=== PATIENT | male | born 1990 | race Caucasian/White ===

== ENCOUNTER 2019-01-18 18:40 | Emergency (ER) | payer OTHER ==
[~2019-01-18] VITALS: Ht 185.4 cm; Wt 128.4 kg
[~2019-01-18 18:40] MED LIST: IBUPROFEN 800800 M1 PO; NAPROSYN500 MG PO; ROBAXIN 750 MG750 M1 PO
[2019-01-18 19:40] VITALS: BP 150/77
== END 2019-01-18 19:42 | disposition left against medical advice (07) ==
LOC: M.ERS 18:40
DX: Z53.21 Procedure and treatment not carried out due to patient leaving prior to being seen by health care provider (principal)

== ENCOUNTER 2019-04-17 19:38 | Emergency (ER) | payer OTHER ==
[~2019-04-17] VITALS: Ht 185.4 cm; Wt 122.5 kg
[2019-04-17] MEDS ORDERED: HYDROCODON-ACE1 EAC8 PO (20:57)
[2019-04-17 21:09] VITALS: BP 148/80
== END 2019-04-17 21:10 | disposition home or self-care (01) ==
LOC: M.ERS 19:38
DX: M77.51 Other enthesopathy of right foot and ankle (principal)

== ENCOUNTER 2019-05-17 19:09 | Emergency (ER) | payer OTHER ==
[~2019-05-17] VITALS: Ht 185.4 cm; Wt 122.5 kg
[~2019-05-17 19:09] MED LIST changes: +HYDROCODON-ACE1 EAC8 PO
[2019-05-17 19:13] VITALS: BP 189/101
[2019-05-17] MEDS ORDERED: NORCO 5-325 TA1 EAC1 PO (19:52)
== END 2019-05-17 20:00 | disposition home or self-care (01) ==
LOC: M.ERS 19:09
DX: M79.671 Pain in right foot (principal)

== ENCOUNTER 2019-07-15 19:36 | Emergency (ER) | payer OTHER ==
[~2019-07-15] VITALS: Ht 185.4 cm; Wt 122.5 kg
[~2019-07-15 19:36] MED LIST changes: +NORCO 5-325 TA1 EAC1 PO
[2019-07-15] MEDS ORDERED: MOBIC15 MG PO (20:57)
[2019-07-15 21:14] VITALS: BP 152/97
== END 2019-07-15 21:16 | disposition home or self-care (01) ==
LOC: M.ERS 19:36
DX: S93.491A Sprain of other ligament of right ankle, initial encounter (principal); W10.8XXA Fall (on) (from) other stairs and steps, initial encounter; Y93.89 Activity, other specified; Y92.89 Other specified places as the place of occurrence of the external cause; Y99.8 Other external cause status

== ENCOUNTER 2019-07-28 06:12 | Emergency (ER) | payer OTHER ==
[~2019-07-28] VITALS: Ht 185.4 cm; Wt 122.5 kg
[~2019-07-28 06:12] MED LIST changes: +MOBIC15 MG PO
[2019-07-28 07:10] LABS: INFLUENZA A ANTIGEN Negative (Negative); INFLUENZA B ANTIGEN Negative (Negative)
[2019-07-28 07:50] VITALS: BP 156/74
== END 2019-07-28 07:52 | disposition left against medical advice (07) ==
LOC: M.ERS 06:12
PROVIDERS: Personal Emergency Response Attendant
DX: Z53.21 Procedure and treatment not carried out due to patient leaving prior to being seen by health care provider (principal)

== ENCOUNTER 2019-09-30 23:12 | Emergency (ER) | payer OTHER ==
[~2019-09-30] VITALS: Ht 185.4 cm; Wt 122.5 kg
[2019-09-30 23:39] LABS: ABSOLUTE BASOPHILS 0.1 thou/uL (0.0-0.2); ABSOLUTE EOSINOPHILS 0.2 thou/uL (0.0-0.7); ABSOLUTE LYMPHOCYTES 4.1 thou/uL (0.8-5.3); ABSOLUTE MONOCYTES 0.8 thou/uL (0.0-1.2); ABSOLUTE NEUTROPHILS 7.4 thou/uL (1.6-8.1); BASOPHILS 0.9 %; EOSINOPHILS 1.9 %; HEMATOCRIT 43.3 % (42.0-52.0); HEMOGLOBIN 15.4 gm/dL (14.0-18.0); LYMPHOCYTES 32.4 %; MCHC 35.6 g/dL (28.0-37.0); MCV 86.8 fL (80.0-100.0); MPV 8.8 fl. (7.2-11.1); NUCLEATED RBCS 0 /100WBC; PLATELET COUNT* 249 thou/uL (150-400); POLYS 58.8 %; RBC 4.99 mil/uL (4.50-6.00); RDW-CV 12.9 % (10.5-14.5); WBC 12.5 thou/uL (4.0-11.0)
[2019-09-30 23:53] LABS: CREATININE 0.9 mg/dL (0.6-1.3); POTASSIUM 3.6 mmol/L (3.5-5.1)
[2019-09-30 23:57] LABS: ALBUMIN 3.7 g/dL (3.4-5.0); TOTAL BILIRUBIN 0.3 mg/dL (<0.1-1.0); TOTAL PROTEIN 7.1 g/dL (6.4-8.2)
[2019-10-01 00:59] VITALS: BP 131/87
--- NOTE | 2019-10-01 09:12 | EKG ---
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
== END 2019-10-01 00:59 | disposition home or self-care (01) ==
LOC: M.ERS 23:12
PROVIDERS: Emergency Medicine
DX: R07.89 Other chest pain (principal)

== ENCOUNTER 2019-10-07 17:37 | Emergency (ER) | payer OTHER ==
[~2019-10-07] VITALS: Ht 182.9 cm; Wt 111.1 kg
[2019-10-07] MEDS ORDERED: TYLENOL WITH CO1 TA1 PO (17:55)
[2019-10-07] MEDS ORDERED: AMOXICILLIN 50500 MG PO (17:55)
[2019-10-07 18:02] VITALS: BP 175/60
== END 2019-10-07 18:00 | disposition home or self-care (01) ==
LOC: M.ERS 17:37
DX: K04.7 Periapical abscess without sinus (principal)

== ENCOUNTER 2019-12-04 14:35 | Emergency (ER) | payer OTHER ==
[~2019-12-04] VITALS: Ht 185.4 cm; Wt 122.5 kg
[~2019-12-04 14:35] MED LIST changes: +AMOXICILLIN 50500 MG PO; +TYLENOL WITH CO1 TA1 PO
[2019-12-04 15:22] VITALS: BP 150/77
== END 2019-12-04 15:29 | disposition home or self-care (01) ==
LOC: M.ERS 14:35
DX: S53.491A Other sprain of right elbow, initial encounter (principal); W19.XXXA Unspecified fall, initial encounter; Y93.89 Activity, other specified; Y92.89 Other specified places as the place of occurrence of the external cause; Y99.8 Other external cause status

== ENCOUNTER 2019-12-31 20:00 | Emergency (ER) | payer OTHER ==
[~2019-12-31] VITALS: Ht 185.4 cm; Wt 122.5 kg
[2019-12-31] MEDS ORDERED: TYLENOL WITH CO1 TA1 PO (20:41)
[2019-12-31] MEDS ORDERED: TRAMADOL 50 MG50 MG PO (20:46)
[2019-12-31 21:14] VITALS: BP 162/66
== END 2019-12-31 21:15 | disposition home or self-care (01) ==
LOC: M.ERS 20:00
DX: S93.691A Other sprain of right foot, initial encounter (principal); F17.210 Nicotine dependence, cigarettes, uncomplicated; X50.1XXA Overexertion from prolonged static or awkward postures, initial encounter; Y93.89 Activity, other specified; Y92.89 Other specified places as the place of occurrence of the external cause; Y99.8 Other external cause status

== ENCOUNTER 2020-02-11 18:06 | Emergency (ER) | payer OTHER ==
[~2020-02-11] VITALS: Ht 185.4 cm; Wt 120.2 kg
[~2020-02-11 18:06] MED LIST changes: +TRAMADOL 50 MG50 MG PO
[2020-02-11 18:11] VITALS: BP 143/85
[2020-02-11] MEDS ORDERED: AMOXICILLIN 50500 MG PO (18:49)
[2020-02-11] MEDS ORDERED: NORCO 5-325 TA1 EAC2 PO (18:49)
== END 2020-02-11 20:54 | disposition home or self-care (01) ==
LOC: M.ERS 18:06
DX: K01.1 Impacted teeth (principal); K08.89 Other specified disorders of teeth and supporting structures; R60.9 Edema, unspecified

== ENCOUNTER 2020-07-07 21:28 | Emergency (ER) | payer OTHER ==
[~2020-07-07] VITALS: Ht 185.4 cm; Wt 122.5 kg
[~2020-07-07 21:28] MED LIST changes: +NORCO 5-325 TA1 EAC2 PO
[2020-07-07] MEDS ORDERED: PREDNISONE50 MG PO (22:50)
[2020-07-07] MEDS ORDERED: HYDROCODONE-ACE15 ML PO (22:50)
[2020-07-07] MEDS ORDERED: AMOXICILLIN875 MG PO (22:50)
[2020-07-07 22:56] VITALS: BP 146/63
== END 2020-07-07 22:56 | disposition home or self-care (01) ==
LOC: M.ERS 21:28
DX: J03.90 Acute tonsillitis, unspecified (principal); Z79.899 Other long term (current) drug therapy; Z20.828 Contact with and (suspected) exposure to other viral communicable diseases

== ENCOUNTER 2020-11-03 23:30 | Emergency (ER) | payer OTHER ==
[~2020-11-03] VITALS: Ht 185.4 cm; Wt 122.5 kg
[~2020-11-03 23:30] MED LIST changes: +AMOXICILLIN875 MG PO; +HYDROCODONE-ACE15 ML PO; +PREDNISONE50 MG PO
[2020-11-04] MEDS ORDERED: NEURONTIN300 MG PO (00:09)
[2020-11-04] MEDS ORDERED: CHANTIX1 MG PO (00:10)
[2020-11-04] MEDS ORDERED: PREDNISONE50 MG PO (01:25)
[2020-11-04] MEDS ORDERED: FLONASE 0.05%50 MCG NARES (01:25)
[2020-11-04 01:42] VITALS: BP 148/76
== END 2020-11-04 01:43 | disposition home or self-care (01) ==
LOC: M.ERS 23:30
DX: K12.2 Cellulitis and abscess of mouth (principal); Z20.822 Contact with and (suspected) exposure to COVID-19; R09.81 Nasal congestion

== ENCOUNTER 2020-11-18 00:21 | Emergency (ER) | payer OTHER ==
[~2020-11-18] VITALS: Ht 185.4 cm; Wt 122.5 kg
[~2020-11-18 00:21] MED LIST changes: +CHANTIX1 MG PO; +FLONASE 0.05%50 MCG NARES; +NEURONTIN300 MG PO
[2020-11-18 01:18] LABS: ABSOLUTE EOSINOPHILS 0.1 thou/uL (0.0-0.7); ABSOLUTE LYMPHOCYTES 2.4 thou/uL (0.8-5.3); ABSOLUTE NEUTROPHILS 9.4 thou/uL (1.6-8.1); BASOPHILS 0.4 %; HEMATOCRIT 41.5 % (42.0-52.0); HEMOGLOBIN 14.5 gm/dL (14.0-18.0); LYMPHOCYTES 18.2 %; MCH 30.4 pg (26.0-34.0); MCHC 34.9 g/dL (28.0-37.0); MCV 87.1 fL (80.0-100.0); MONOCYTES 7.5 %; MPV 8.1 fl. (7.2-11.1); NUCLEATED RBCS 0 /100WBC; PLATELET COUNT* 258 thou/uL (150-400); POLYS 72.9 %; RBC 4.77 mil/uL (4.50-6.00); RDW-CV 12.4 % (10.5-14.5); WBC 12.9 thou/uL (4.0-11.0)
[2020-11-18 01:28] LABS: CREATININE 0.8 mg/dL (0.6-1.3); POTASSIUM 3.7 mmol/L (3.5-5.1)
[2020-11-18 01:34] LABS: ALBUMIN 3.7 g/dL (3.4-5.0); TOTAL BILIRUBIN 0.4 mg/dL (<0.1-1.0); TOTAL PROTEIN 7.2 g/dL (6.4-8.2)
[2020-11-18] MEDS ORDERED: ZOFRAN ODT4 MG PO (02:57)
[2020-11-18 03:03] VITALS: BP 128/70
[2020-11-18] MEDS ORDERED: VALIUM2 MG PO (19:52)
[2020-11-18] MEDS ORDERED: CLARITIN10 M3 PO (19:52)
[2020-11-18] MEDS ORDERED: MECLIZINE HCL25 MG PO (19:52)
[2020-11-18] MEDS ORDERED: FLONASE 0.05%50 MCG NARES (19:55)
== END 2020-11-18 03:03 | disposition home or self-care (01) ==
LOC: M.ERS 00:21
PROVIDERS: Emergency Medicine
DX: R11.2 Nausea with vomiting, unspecified (principal); R10.13 Epigastric pain; R10.11 Right upper quadrant pain; F17.210 Nicotine dependence, cigarettes, uncomplicated

== ENCOUNTER 2020-11-18 18:49 | Emergency (ER) | payer OTHER ==
[~2020-11-18] VITALS: Ht 185.4 cm; Wt 122.5 kg
[~2020-11-18 18:49] MED LIST changes: +ZOFRAN ODT4 MG PO
[2020-11-18] MEDS ORDERED: VALIUM2 MG PO (19:52)
[2020-11-18] MEDS ORDERED: CLARITIN10 M3 PO (19:52)
[2020-11-18] MEDS ORDERED: MECLIZINE HCL25 MG PO (19:52)
[2020-11-18] MEDS ORDERED: FLONASE 0.05%50 MCG NARES (19:55)
[2020-11-18 20:05] VITALS: BP 130/52
== END 2020-11-18 20:05 | disposition home or self-care (01) ==
LOC: M.ERS 18:49
DX: R42 Dizziness and giddiness (principal); J32.9 Chronic sinusitis, unspecified; F17.210 Nicotine dependence, cigarettes, uncomplicated

== ENCOUNTER 2021-02-10 20:18 | Emergency (ER) | payer OTHER ==
[~2021-02-10] VITALS: Ht 185.4 cm; Wt 122.5 kg
[~2021-02-10 20:18] MED LIST changes: +CLARITIN10 M3 PO; +MECLIZINE HCL25 MG PO; +VALIUM2 MG PO
[2021-02-10] MEDS ORDERED: NORCO7.5 PO (20:28)
[2021-02-10 21:01] VITALS: BP 131/77
--- NOTE | 2021-02-11 10:12 | EKG ---
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
== END 2021-02-10 21:01 | disposition left against medical advice (07) ==
LOC: M.ERS 20:18
DX: R07.89 Other chest pain (principal); Z53.21 Procedure and treatment not carried out due to patient leaving prior to being seen by health care provider

== ENCOUNTER 2021-05-30 22:16 | Emergency (ER) | payer OTHER ==
[~2021-05-30] VITALS: Ht 185.4 cm; Wt 127.0 kg
[~2021-05-30 22:16] MED LIST changes: +NORCO7.5 PO
[2021-05-30] MEDS ORDERED: OMEPRAZOLE 20 M20 M1 PO (22:24)
[2021-05-30 22:44] LABS: ABSOLUTE BASOPHILS 0.1 thou/uL (0.0-0.2); ABSOLUTE EOSINOPHILS 0.2 thou/uL (0.0-0.7); ABSOLUTE LYMPHOCYTES 3.3 thou/uL (0.8-5.3); ABSOLUTE MONOCYTES 0.8 thou/uL (0.0-1.2); ABSOLUTE NEUTROPHILS 3.9 thou/uL (1.6-8.1); EOSINOPHILS 2.2 %; LYMPHOCYTES 40.5 %; MCH 29.9 pg (26.0-34.0); MCHC 34.1 g/dL (28.0-37.0); MCV 87.8 fL (80.0-100.0); MONOCYTES 9.3 %; MPV 7.9 fl. (7.2-11.1); NUCLEATED RBCS 0 /100WBC; PLATELET COUNT* 272 thou/uL (150-400); RBC 5.01 mil/uL (4.50-6.00); RDW-CV 12.6 % (10.5-14.5); WBC 8.2 thou/uL (4.0-11.0)
[2021-05-30 22:54] LABS: CALCIUM 8.7 mg/dL (8.5-10.1); CREATININE 0.8 mg/dL (0.6-1.3); POTASSIUM 3.8 mmol/L (3.5-5.1)
[2021-05-30 22:58] LABS: ALBUMIN 3.7 g/dL (3.4-5.0); TOTAL BILIRUBIN 0.3 mg/dL (<0.1-1.0); TOTAL PROTEIN 7.7 g/dL (6.4-8.2)
[2021-05-31] MEDS ORDERED: VERTICALM25 MG PO (00:08)
[2021-05-31 00:15] VITALS: BP 122/66
== END 2021-05-31 00:15 | disposition home or self-care (01) ==
LOC: M.ERS 22:16
PROVIDERS: Emergency Medicine
DX: R42 Dizziness and giddiness (principal); Z20.822 Contact with and (suspected) exposure to COVID-19; F17.210 Nicotine dependence, cigarettes, uncomplicated; Z79.899 Other long term (current) drug therapy

== ENCOUNTER 2021-06-13 06:09 | Emergency (ER) | payer OTHER ==
[~2021-06-13] VITALS: Ht 185.4 cm; Wt 122.5 kg
[~2021-06-13 06:09] MED LIST changes: +OMEPRAZOLE 20 M20 M1 PO; +VERTICALM25 MG PO
[2021-06-13 06:49] LABS: ABSOLUTE LYMPHOCYTES 0.6 thou/uL (0.8-5.3); ABSOLUTE MONOCYTES 0.8 thou/uL (0.0-1.2); ABSOLUTE NEUTROPHILS 6.4 thou/uL (1.6-8.1); BASOPHILS 0.3 %; EOSINOPHILS 0.2 %; HEMATOCRIT 43.1 % (42.0-52.0); HEMOGLOBIN 15.2 gm/dL (14.0-18.0); LYMPHOCYTES 7.4 %; MCH 30.4 pg (26.0-34.0); MCHC 35.3 g/dL (28.0-37.0); MCV 86.2 fL (80.0-100.0); MONOCYTES 10.4 %; NUCLEATED RBCS 0 /100WBC; PLATELET COUNT* 207 thou/uL (150-400); POLYS 81.7 %; RDW-CV 12.5 % (10.5-14.5); WBC 7.8 thou/uL (4.0-11.0)
[2021-06-13 07:05] LABS: CALCIUM 8.6 mg/dL (8.5-10.1); CREATININE 0.8 mg/dL (0.6-1.3)
[2021-06-13 07:10] LABS: ALBUMIN 3.7 g/dL (3.4-5.0); TOTAL BILIRUBIN 0.3 mg/dL (<0.1-1.0); TOTAL PROTEIN 7.3 g/dL (6.4-8.2)
[2021-06-13 07:41] LABS: INFLUENZA A ANTIGEN Negative (Negative); INFLUENZA B ANTIGEN Negative (Negative)
[2021-06-13 07:53] LABS: ESR (SEDRATE) 5 mm/hr (0-15)
[2021-06-13] MEDS ORDERED: TESSALON PERLE100 MG PO (09:00)
[2021-06-13] MEDS ORDERED: ZOFRAN ODT4 MG DISSOLVE (09:00)
[2021-06-13 09:16] VITALS: BP 127/71
== END 2021-06-13 09:17 | disposition home or self-care (01) ==
LOC: M.ERS 06:09
PROVIDERS: Emergency Medicine
DX: U07.1 COVID-19 (principal); R11.2 Nausea with vomiting, unspecified; H93.13 Tinnitus, bilateral; F17.210 Nicotine dependence, cigarettes, uncomplicated